=== PATIENT | male | born 1985 | race Two or more races ===

== ENCOUNTER → 2025-05-01 | Outpatient (CLI) | payer MEDICAID, SELFPAY ==
--- NOTE | 2025-05-01 08:15 | XR_ITS ---
EXAMINATION: Testicular sonography complete TECHNIQUE: Grayscale sonographic images testes, assessment arterial inflow and venous outflow Doppler spectral analysis color flow analysis Date and time: May 01, 2025, 0830 hours INDICATIONS: Onset right testicular pain beginning a few weeks ago FINDINGS: Right testis 4.2 cm epididymis 12 mm Arterial flow to the testicle. No testicular mass Right inguinal hernia containing bowel, the hernia defect measuring 10 mm Mild varicocele Mild hydrocele Left testis 4.0 cm epididymis 13 mm Arterial flow of the testicle. No testicular mass Mild left testicular microlithiasis Mild varicocele Mild hydrocele IMPRESSION: No testicular torsion or testicular mass Right inguinal hernia defect containing bowel Mild bilateral varicoceles Mild left testicular microlithiasis, given this finding recommend 6-month follow-up testicular sonography
== END | disposition home or self-care (01) ==
LOC: CDIM 08:04
PROVIDERS: PCP Physician Assistant; Referring Provider Physician Assistant; Visit Provider Physician Assistant
DX: K40.90 Unilateral inguinal hernia, without obstruction or gangrene, not specified as recurrent (principal); I86.1 Scrotal varices; N50.89 Other specified disorders of the male genital organs
CPT/HCPCS: 76870